=== PATIENT | male | born 1940 | race Caucasian/White ===

== ENCOUNTER 2017-03-17 06:59 | Outpatient (CLI) | payer MEDICARE ==
--- NOTE | 2017-03-17 08:53 | MRI ---
MRI OF THE BRAIN WITH AND WITHOUT CONTRAST: HISTORY: Neoplasm of the lung. The patient has a history of esophageal cancer, prior lung cancer, and prosta te cancer, treated with radiation therapy. Confusion. Evaluate for intracranial metastatic disease . COMPARISON: None. TECHNIQUE: Multiplanar, multisequence MR images were obtained of the brain with and without IV contrast. FINDINGS: There are a few scattered foci of high FLAIR signal in the subcortical and periventricular white mat ter, likely secondary to small vessel ischemic disease. No restricted diffusion is seen to suggest an acute infarction. No abnormal enhancement is seen, and there is no evidence of intracranial meta static disease. There is no evidence of hydrocephalus, intracranial hemorrhage, or extraaxial fluid collection. The expected flow voids are present. The corpus callosum, pituitary, and craniocervical junction are u nremarkable. The calvarium and overlying soft tissues are unremarkable. The visualized paranasal sinuses and mas toid air cells are well aerated. IMPRESSION: 1. No evidence of intracranial metastatic disease. 2. Mild small vessel ischemic disease. POS: [facility]
[2017-03-17] MEDS ORDERED: Gadobenate Dimeglumine 529 MG/1 ML (20ML VIAL) ONE (16:05)
== END 2017-03-17 07:00 | disposition home or self-care (01) ==
LOC: MRI 06:59
PROVIDERS: ATTEND Radiology Radiation Oncology
DX: C34.90 Malignant neoplasm of unspecified part of unspecified bronchus or lung (principal); R41.0 Disorientation, unspecified; I67.82 Cerebral ischemia
CPT/HCPCS: 70553; A9579

== ENCOUNTER 2017-04-26 08:16 | Outpatient (CLI) | payer MEDICARE ==
--- NOTE | 2017-04-26 09:52 | CT ---
CHEST CT SCAN WITHOUT IV CONTRAST: HISTORY: A 6-year-old male for followup lung cancer with last radiation treatment in 2016. COMPARISON: 01/03/17. PET scan 01/17/17. FINDINGS: There is a marked increase in size in the left upper lobe poorly circumscribed mass now measuring adan roximately 3.9 x 4.8 cm, increasing in size from approximately 2.3 x 2.8 cm on the 01/03/17 study. Sta ble-appearing pleural and parenchymal scarring in the posterior left mid and lower lung zone. Stable small poorly circumscribed nodule or scar in the right lower lobe. Stable liver cysts. Three-vesse l coronary artery calcific disease. IMPRESSION: Marked increase in the size of the poorly circumscribed mass in the left upper lobe extending to the anterior mediastinum. Stable pleural and parenchymal changes in the left base and stable small poorl y circumscribed nodule or scar in the right lower lobe. POS: [facility]
== END 2017-04-26 08:17 | disposition home or self-care (01) ==
LOC: CT 08:16
PROVIDERS: ATTEND Radiology Radiation Oncology
DX: C34.12 Malignant neoplasm of upper lobe, left bronchus or lung (principal)
CPT/HCPCS: 71250